=== PATIENT | male | born 1945 | race African-American/Black ===

== ENCOUNTER 2021-03-22 10:51 | Outpatient (CLI) | payer MEDICARE | END 2021-03-22 10:52 | disposition home or self-care (01) | LOC: MADLAB 10:51 | PROVIDERS: ATTEND Family Medicine | DX: G89.29 Other chronic pain (principal); M47.816 Spondylosis without myelopathy or radiculopathy, lumbar region | CPT/HCPCS: 72100 ==

== ENCOUNTER 2021-06-08 10:56 | Outpatient (CLI) | payer MEDICARE | END 2021-06-08 10:57 | disposition home or self-care (01) | LOC: MADRAD 10:56 | PROVIDERS: ATTEND Family Medicine | DX: M79.671 Pain in right foot (principal) ==

== ENCOUNTER 2021-08-31 13:37 | Emergency (ER) | payer MEDICARE, MEDICAID ==
[2021-08-31 14:52] LABS: ALT (SGPT) 336 U/L (8-55); AST (SGOT) 333 U/L (5-34); Albumin 2.5 g/dL (3.4-4.8); Alkaline Phosphatase 158 U/L (40-110); Anion Gap 15 mmol/L (10-20); BUN (Urea Nitrogen) 12 mg/dL (8.4-25.7); Bilirubin, Total 1.6 mg/dL (0.2-1.2); Calc. Creatinine Clearance 0 mL/min (70-130); Calcium 9.9 mg/dL (7.8-10.44); Carbon Dioxide 26 mmol/L (23-31); Chloride 101 mmol/L (98-107); Globulin 6.2 g/dL (2.4-3.5); Glucose 98 mg/dL (83-110); Magnesium 1.9 mg/dL (1.6-2.6); Potassium 3.9 mmol/L (3.5-5.1); Protein, Total 8.7 g/dL (5.8-8.1); Sodium 138 mmol/L (136-145)
[2021-08-31 14:53] LABS: Anisocytosis SLIGHT = 6-15 cells (100X) (0-5/hpf); Hemoglobin 10.9 g/dL (14.0-18.0); Hypochromia SLIGHT = 6-15 cells (100X) (0-5/hpf); Lymphocytes 17 % (21-51); MDiff Complete? YES; Mean Corpuscular HGB CONC 31.1 g/dL (32.0-36.0); Mean Corpuscular Hemoglobin 24.7 pg (27.0-31.0); Mean Corpuscular Volume 79.4 fL (78.0-98.0); Mean Platelet Volume 7.6 fL (7.4-10.4); Monocytes 5 % (0-10); Neutrophil 78 % (42-75); Platelet Count 534 thou/uL (130-400); Platelet Morphology Comment Appears Increased; RBC Distribution Width 16.7 % (11.5-14.5); Red Blood Cell (RBC) Count 4.41 mill/uL (4.70-6.10)
[2021-08-31] MEDS ORDERED: Sodium Chloride 0.9% 100 ML ONE (15:10)
[2021-08-31] MEDS ORDERED: guaiFENesin/Codeine Phosphate 100 mg/10 mg 5 ml UD Cup ONE (15:10)
[2021-08-31] MEDS ORDERED: cefTRIAXone\\ROCEPHIN 2 GM VIAL ONE (15:11)
[2021-08-31 15:13] LABS: CKMB 7.1 ng/mL (0-6.6)
[2021-08-31] MEDS ORDERED: Sodium Chloride 0.9% 250 ML 250 ML ONE (15:49)
[2021-08-31] MEDS ORDERED: Azithromycin 500 MG VIAL ONE (15:49)
[2021-08-31 16:49] LABS: SARS-CoV-2 NAA Rapid Test Not Detected (NotDetected)
[2021-08-31 18:17] LABS: Lactic Acid 1.8 mmol/L (0.5-2.2)
== END 2021-08-31 21:18 | disposition short-term general hospital (02) ==
LOC: MADERS 13:37
DX: J18.9 Pneumonia, unspecified organism (principal); I50.9 Heart failure, unspecified; R77.8 Other specified abnormalities of plasma proteins; R74.01 Elevation of levels of liver transaminase levels; I25.10 Atherosclerotic heart disease of native coronary artery without angina pectoris; I25.2 Old myocardial infarction; I48.91 Unspecified atrial fibrillation; Z20.822 Contact with and (suspected) exposure to COVID-19; Z95.0 Presence of cardiac pacemaker; Z79.82 Long term (current) use of aspirin; Z79.899 Other long term (current) drug therapy
CPT/HCPCS: 71045; 80053; 82553; 83605; 83735; 83880; 84484; 85025; 87040; 93005; U0002; 36415; 96365; 96367; J0456; J0696; J3490; J7050